=== PATIENT | male | born 1995 | race Hispanic/Latino ===

== ENCOUNTER 2021-03-29 11:48 | Emergency (ER) | payer SELFPAY | END 2021-03-29 14:25 | disposition home or self-care (01) | LOC: CSHERS 11:48 | DX: S93.402A Sprain of unspecified ligament of left ankle, initial encounter (principal); X50.0XXA Overexertion from strenuous movement or load, initial encounter; F17.210 Nicotine dependence, cigarettes, uncomplicated ==